=== PATIENT | male | born 1945 | race Caucasian/White ===

== ENCOUNTER → 2016-05-28 | Outpatient (CLI) | payer OTHER ==
[~2016-05-28] VITALS: Ht 170.2 cm; Wt 72.6 kg
[~2016-05-28] MED LIST: ABILIFY10 MG PO; ACIPHEX20 MG PO; ALL DAY ALLERGY10 M3 PO; COCONUT OIL1000 MG PO; COD LIVER OIL1 EACH PO; FIBER THERAPY0.52 GM PO; FISH OIL 1,2001 EAC4 PO; GINKGO BILOBA120 M1 PO; INDAPAMIDE2.5 MG PO; IRON325 M1 PO; KLONOPIN1 MG PO; METAMUCIL PACKE1 PKT PO; METOCLOPRAMIDE H5 MG PO; NUVIGIL250 MG PO; OCUVITE TABLET1 EACH PO; ODOR FREE GARL1 EACH PO; OLIVE LEAF EXT250 MG PO; PERI-COLACE TA1 EACH PO; PROCTOFOAM-HC10 GM PR; RABEPRAZOLE SOD20 MG PO; REFRESH OPTIVE10 M1 BOTH EYES; RESTASIS MULTI5.5 ML BOTH EYES; ROPINIROLE HCL2 MG PO; VALSARTAN-HCTZ1 EACH PO; VALSARTAN160 MG PO; VIIBRYD40 MG PO; VITAMIN D1000 UNIT PO; ZADITOR 0.100 DROP/5 BOTH EYES; [UNRECOGNIZED DRUG - OTHER] PO
== END | disposition home or self-care (01) ==
LOC: AMB 11:46
DX: K31.7 Polyp of stomach and duodenum (principal); K22.8 Other specified diseases of esophagus; R13.12 Dysphagia, oropharyngeal phase; K21.9 Gastro-esophageal reflux disease without esophagitis; I10 Essential (primary) hypertension; Z80.0 Family history of malignant neoplasm of digestive organs; Z82.49 Family history of ischemic heart disease and other diseases of the circulatory system; Z82.3 Family history of stroke
CPT/HCPCS: 88305; 88342 TC; J0330; J1100; J2250; J2405; J3010